=== PATIENT | female | born 1980 | race Caucasian/White ===

== ENCOUNTER 2019-09-19 09:01 | Outpatient (CLI) | payer BC, SELFPAY ==
--- NOTE | 2019-09-19 09:12 | XR_ITS ---
WS: [id number] XR foot LT min 3V* [id number] REASON FOR EXAM: left heel pain FINDINGS: A prominent calcaneal spur is noted. The phalanges, metatarsals, tarsals are normal. The remaining calcaneus appears to be normal. XR/XR foot LT min 3V* [id number] IMPRESSION: Prominent calcaneal spur with retrocalcaneal exostosis.
== END 2019-09-19 09:02 | disposition home or self-care (01) ==
LOC: RAD 09:04
PROVIDERS: Family Provider Family Medicine; PCP Family Medicine; Visit Provider Family Medicine
DX: M79.672 Pain in left foot (principal); M77.32 Calcaneal spur, left foot
CPT/HCPCS: 73630

== ENCOUNTER 2019-12-08 11:22 | Outpatient (CLI) | payer BC, SELFPAY ==
--- NOTE | 2019-12-08 11:30 | US_ITS ---
WS: [id number] TRANSABDOMINAL PELVIC AND TRANSVAGINAL PELVIC ULTRASOUND HISTORY: heavy irregular periods COMPARISON: 12/18/2017 Uterus: 8.5 cm x 5.2 cm x 4.6 cm. Retroverted uterus. No fibroid or mass. Normal homogeneity. Endometrium: 0.5 cm. Normal homogeneity and normal vascularity. Right ovary: 3.1 cm x 3.2 cm x 2.1 cm. Normal size ovary with small follicles. Normal vascularity. Left ovary: 3.6 cm x 2.7 cm x 1.6 cm. Normal size and vascularity. Collapsing corpus luteum in the ce ntral ovary with a maximum diameter of 1.0 cm. Small amount of free fluid in the cul-de-sac. US/US pelvic with transvaginal IMPRESSION: 1. Small amount of free fluid in the cul-de-sac. 2. Retroverted uterus. 3. Normal endometrium.
== END 2019-12-08 11:23 | disposition home or self-care (01) ==
LOC: RAD 11:23
PROVIDERS: Family Provider Family Medicine; Visit Provider Family Medicine
DX: N92.1 Excessive and frequent menstruation with irregular cycle (principal); R10.2 Pelvic and perineal pain; N85.4 Malposition of uterus
CPT/HCPCS: 76830; 76856

== ENCOUNTER 2020-09-03 14:45 | Outpatient (CLI) | payer BC, SELFPAY ==
--- NOTE | 2020-09-03 14:51 | MM_ITS ---
WS: [id number] BILATERAL SCREENING DIGITAL MAMMOGRAM WITH CAD HISTORY: SCREENING COMPARISON: 12/26/2018 and 12/18/2017 Bilateral CC and MLO views submitted. Computer aided detection analyzed. Breast composition: The breasts are heterogeneously dense, which may obscure small masses. No suspici ous masses, microcalcifications or architectural distortion. Scattered asymmetries and calcifications . Overall the pattern is stable. MM/[place] [id number] IMPRESSION: BI-RADS: 2-Benign FOLLOW UP: 1 Year Follow-up
== END 2020-09-03 14:46 | disposition home or self-care (01) ==
LOC: RADSHAW 14:50
PROVIDERS: PCP Family Medicine; Visit Provider Family Medicine
DX: Z12.31 Encounter for screening mammogram for malignant neoplasm of breast (principal)
CPT/HCPCS: 77067

== ENCOUNTER → 2020-11-15 09:52 | Outpatient (BNVA) | payer BC, SELFPAY | PROVIDERS: PCP Family Medicine; Visit Provider Obstetrics & Gynecology | DX: Z12.4 Encounter for screening for malignant neoplasm of cervix (principal) | CPT/HCPCS: 88175 ==

== ENCOUNTER → 2021-12-02 14:03 | Outpatient (BNVA) | payer BC, SELFPAY | PROVIDERS: PCP Family Medicine; Visit Provider Obstetrics & Gynecology | DX: N85.4 Malposition of uterus (principal) | CPT/HCPCS: 76830 ==

== ENCOUNTER 2021-12-14 07:34 | Outpatient (CLI) | payer BC, SELFPAY ==
--- NOTE | 2021-12-14 07:53 | NM_ITS ---
WS: [id number] NUCLEAR MEDICINE HIDA SCAN WITH GALLBLADDER EJECTION FRACTION HISTORY: RUQ PAIN COMPARISON: None available. TECHNIQUE: The patient was intravenously injected with 7.4 mCi of TC99m Mebrofenin. Immediate imaging over the right upper quadrant was followed by 5 minute image and additional images for a total of 60 minutes. Normal uptake of radiotracer throughout the liver. Activity identified in the gallbladder at 10 minutes and well distended by 60 minutes. Activity in the proximal small bowel was seen by 30 minutes. Good washout of the radiotracer from the liver by 60 minutes. The patient then drank 8 ounces of Ensure Plus. Ejection fraction at 60 minutes was 82%. Normal GB ej ection fraction is 35-75%. Post fatty meal symptoms: None. NM/NM hepatobiliary w phar* [id number] IMPRESSION: 1. Normal HIDA scan. 2. Normal gallbladder ejection fraction.
== END 2021-12-14 07:35 | disposition home or self-care (01) ==
PROVIDERS: PCP Family Medicine; Visit Provider Physician Assistant
DX: R10.11 Right upper quadrant pain (principal)
CPT/HCPCS: 78227; A9537

== ENCOUNTER 2021-12-21 14:35 | Emergency (ER) | payer BC, SELFPAY ==
[2021-12-21 14:48] VITALS: BP 130/91; PULSE 108; RESP 18; TEMP 36.8; O2SAT 97
--- NOTE | 2021-12-21 16:32 | CTR_ITS ---
PROCEDURE INFORMATION: Exam: CT Abdomen And Pelvis With Contrast Exam date and time: 12/21/2021 4:54 PM Age: 41 years old Clinical indication: Abdominal pain; Additional info: Llq abd pain, lmp currently on TECHNIQUE: Imaging protocol: Computed tomography of the abdomen and pelvis with contrast. Axial, coronal and sagittal reformatted images were created and reviewed. Radiation optimization: All CT scans at this facility use at least one of these dose optimization techniques: automated exposure control; mA and/or kV adjustment per patient size (includes targeted exams where dose is matched to clinical indication); or iterative reconstruction. Contrast material: OMNI 300; Contrast volume: 50 ml; Contrast route: INTRAVENOUS (IV); COMPARISON: US pelvic with transvaginal 12/08/2019 11:38 AM RADIATION DOSE METRICS: Total DLP (mGy-cm): 1544.95 FINDINGS: Lungs: Mild dependent atelectatic change in the right lower lobe. Diaphragm: Elevated right hemidiaphragm. Liver: Unremarkable. Gallbladder and bile ducts: No radiodense gallstones. No biliary ductal dilatation. Pancreas: Unremarkable. Spleen: Unremarkable. Adrenal glands: Normal. No mass. Kidneys and ureters: No mass. No radiodense calculi. No hydronephrosis. Stomach and bowel: Moderate amount of retained stool in the colon. No obstruction. No bowel wall thickening. No pneumatosis. Appendix: Normal. Intraperitoneal space: No free fluid. No organized fluid collection. No free air. Vasculature: Unremarkable. No aneurysm. Lymph nodes: Small mesenteric lymph nodes, nonspecific in appearance. No pathologically enlarged lymph nodes. Urinary bladder: Unremarkable as visualized. Reproductive: Unremarkable. Bones/joints: No acute osseous abnormality. Mild degenerative changes. Soft tissues: Unremarkable. CT/CT abdomen pelvis w con* [id number]: 1[address] No CT evidence of acute intra-abdominal or pelvic pathology. 2. Additional findings, as above.
[2021-12-21 16:49] LABS: Basophils # 0.1 10^3/uL (0.0-0.1); Basophils % 0.9 %; Eosinophils % 0.5 %; Hematocrit 41.6 % (37.0-47.0); Hemoglobin 13.7 g/dL (11.5-15.3); Lymphocytes # 1.6 10^3/uL (0.8-4.8); Lymphocytes % 27.6 %; Mean Corpuscular HGB Conc 32.9 g/dL (30.0-36.0); Mean Corpuscular Hemoglobin 30.2 pg (28.0-34.0); Mean Corpuscular Volume 91.8 fl (81-99); Mean Platelet Volume 10.4 fL (7.4-10.4); Monocytes # 0.4 10^3/uL (0.2-0.9); Monocytes % 7.2 %; Neutrophils % 63.4 %; Nucleated Red Blood Cells % 0 %; Platelet Count 276 10^3/cmm (130-400); Red Blood Count 4.53 10^6/uL (4.1-5.3); Red Cell Distribution Width 12.5 % (12.1-15.1); White Blood Count 5.7 10^3/uL (4.0-10.0)
[2021-12-21] MEDS: iohexol 300 mg/mL 100 mL Btl IV (17:01)
--- NOTE | 2021-12-21 17:05 | ED_ITS ---
HPI - Abdominal Pain General: Chief Complaint: Abdominal Pain Stated Complaint: Abd pain Time Seen by Provider: 12/21/21 16:27 History of Present Illness: Patient comes in with abdominal pain which she describes as off and on, left lower quadrant, sharp, worse the last couple of days, started a couple months ago. States she is had ultrasound and is scheduled for a CT. States over the last 24 hours is gotten worse. She denies fever, vomiting, diarrhea. Associated Symptoms: Denies dysuria, fever(s), nausea and vomiting Review of Systems Const: Denies: fever(s) or body aches Eyes: Denies: change in vision or blurry vision ENMT: Denies: throat pain or odynophagia Card: Denies: chest pain or palpitations Resp: Denies: dyspnea or productive cough GI: Reports: abdominal pain; Denies: nausea or vomiting : Denies: flank pain or dysuria Musc: Denies: neck pain or back pain Skin/Breast: Denies: rash or pruritus Neuro: Denies: headache(s) or numbness in extremities Psych: Denies: anxiety or change in appetite Endo: Denies: polyuria or excessive sweating PFSH ED PFSH: Medical History GERD (gastroesophageal reflux disease) Graves disease History of 2019 novel coronavirus disease (COVID-19) Surgical History No pertinent past surgical history Family History Family/Other Thyroid disease Maternal Aunt--Hypothyroidism Family/Other Cancer Paternal Uncle--liver and eye Grandfather Cancer Paternal--prostate cancer Other CAD (coronary artery disease) Denies family history of Diabetes Ovarian cyst Clotting disorder Dementia Hyperlipidemia Psychiatric illness Chronic kidney disease (CKD) Breast cancer Suicide Anesthesia complication Bleeding disorder Family history of premature coronary artery disease Lung disease Hypertension Stroke Physical Exam Const: COMMON NORMALS: no acute distress, patient oriented x3, healthy appearing and alert HENMT: COMMON NORMALS: normocephalic and atraumatic HEAD & SCALP: normocephalic and atraumatic Eye: COMMON NORMALS: Equal, round and reactive pupils present and EOMs intact bilaterally PUPIL: Yes Equal, round and reactive pupils present Neck/C-Spine: COMMON NORMALS: full ROM and supple Resp: COMMON NORMALS: normal respiratory effort, No retractions and No use of accessory muscles Cardio: COMMON NORMALS: regular rate and regular rhythm RATE: regular rate RHYTHM: regular rhythm GI: COMMON NORMALS: Normal to inspection, nondistended, normoactive bowel sounds present and Soft to palpation PALPATION: Yes Soft to palpation O THER: Mild left lower quadrant tenderness to palpation Back/Pelvis: COMMON NORMALS: thoracic and lumbar spine normal to inspection and no thoracic nor lumbar tenderness Extremity: COMMON NORMALS: normal to inspection and full ROM Neuro: COMMON NORMALS: patient oriented x3 SENSORIUM/ORIENTATION: Yes alert Psych: COMMON NORMALS: mental status grossly normal and cooperative Skin: COMMON NORMALS: no rashes or lesions noted and no wounds GENERAL SKIN EXAM: no rashes or lesions noted Course Vital Signs: Vital signs: Vital Signs Temperature 98.2 F 12/21/21 14:48 Pulse Rate 108 H 12/21/21 14:48 Respiratory Rate 18 12/21/21 14:48 Blood Pressure 130/91 12/21/21 14:48 Pulse Oximetry 97 12/21/21 14:48 MDM - Abdominal Pain Medical Decision Making Patient comes in with abdominal pain which she describes as off and on, left lower quadrant, sharp, worse the last couple of days, started a couple months ago. States she is had ultrasound and is scheduled for a CT. States over the last 24 hours is gotten worse. She denies fever, vomiting, diarrhea. Physical exam is unremarkable except for mild left lower quadrant tenderness palpation. Will check labs, CT, and reassess. On reassessment I talked to the patient about the test results. Will discharge home at this time with precautions to return for worsening or changing symptoms. Lab Data : 12/21/21 16:40 12/21/21 16:40 Labs/Radiology: Radiology Impressions Abdomen/Pelvis CT 12/21/21 16:[address]: 1[address] evidence of acute intra-abdominal or pelvic pathology. 2. Additional findings, as above. Laboratory Results WBC 5.7 10^3/uL (4.0-10.0) 12/21/21 16:40 RBC 4.53 10^6/uL (4.1-5.3) 12/21/21 16:40 Hgb 13.7 g/dL (11.5-15.3) 12/21/21 16:40 Hct 41.6 % (37.0-47.0) 12/21/21 16:40 MCV 91.8 fl (81-99) 12/21/21 16:40 MCH 30.2 pg (28.0-34.0) 12/21/21 16:40 MCHC 32.9 g/dL (30.0-36.0) 12/21/21 16:40 RDW 12.5 % (12.1-15.1) 12/21/21 16:40 Plt Count 276 10^3/cmm (130-400) 12/21/21 16:40 MPV 10.4 fL (7.4-10.4) 12/21/21 16:40 Neut % (Auto) 63.4 % 12/21/21 16:40 Lymph % (Auto) 27.6 % 12/21/21 16:40 Mccone % (Auto) 7.2 % 12/21/21 16:40 Eos % (Auto) 0.5 % 12/21/21 16:40 Baso % (Auto) 0.9 % 12/21/21 16:40 Neut # (Auto) 3.60 10^3/uL (1.8-7.7) 12/21/21 16:40 Lymph # (Auto) 1.6 10^3/uL (0.8-4.8) 12/21/21 16:40 Mccone # (Auto) 0.4 10^3/uL (0.2-0.9) 12/21/21 16:40 Eos # (Auto) 0.0 10^3/uL (0.0-0.8) 12/21/21 16:40 Baso # (Auto) 0.1 10^3/uL (0.0-0.1) 12/21/21 16:40 Nucleated RBC % (auto) 0 % 12/21/21 16:40 Nucleated RBCs # 0.0 /100WBC 12/21/21 16:40 Sodium 140 mmol/L (136-145) 12/21/21 16:40 Potassium 3.8 mmol/L (3.5-5.1) 12/21/21 16:40 Chloride 103 mmol/L (98-107) 12/21/21 16:40 Carbon Dioxide 25 mmol/L (22-29) 12/21/21 16:40 Anion Gap 15.8 (5-19) 12/21/21 16:40 BUN 14 mg/dL (6-20) 12/21/21 16:40 Creatinine 0.7 mg/dL (0.5-0.9) 12/21/21 16:40 GFR Calculation 91.3 mL/min (90-130) 12/21/21 16:40 Glucose 105 mg/dL (65-115) 12/21/21 16:40 Calculated Osmolality 291 mOsm/kg (285-295) 12/21/21 16:40 Calcium 9.7 mg/dL (8.5-10.5) 12/21/21 16:40 Total Bilirubin 0.3 mg/dL (0.15-1.2) 12/21/21 16:40 AST 13 U/L (0-32) 12/21/21 16:40 ALT 11 U/L (0-33) 12/21/21 16:40 Alkaline Phosphatase 64 IU/L (35-105) 12/21/21 16:40 Total Protein 7.1 g/dL (6.6-8.7) 12/21/21 16:40 Albumin 4.8 g/dL (3.5-5.2) 12/21/21 16:40 Globulin 2.3 g/dL (1.3-4.6) 12/21/21 16:40 Lipase 21 U/L (13-60) 12/21/21 16:40 Discharge Plan Discharge Patient Disposition: Home Clinical Impression: LLQ pain Condition: Stable Prescriptions: No Action methimazole 10 mg tablet 5 mg PO DAILY 0RF Discharge Orders: Discharge ED (Routine); Ordered 12/21/21 Ordered By: Juan Edwards Referrals: Domonique Price DO [Primary Care Provider] - Patient Instructions: Abdominal Pain (ED) Coding Level of Care Code ED President Practicing Urologist for Chg Fwd Exam Comprehensive
[2021-12-21 17:52] LABS: Alanine Aminotransferase 11 U/L (0-33); Albumin Level 4.8 g/dL (3.5-5.2); Alkaline Phosphatase 64 IU/L (35-105); Anion Gap 15.8 (5-19); Aspartate Amino Transferase 13 U/L (0-32); Blood Urea Nitrogen 14 mg/dL (6-20); Calcium 9.7 mg/dL (8.5-10.5); Carbon Dioxide 25 mmol/L (22-29); Chloride 103 mmol/L (98-107); Globulin 2.3 g/dL (1.3-4.6); Glomerular Filtration Rate 91.3 mL/min (90-130); Glucose 105 mg/dL (65-115); Lipase 21 U/L (13-60); Osmolality Calculated 291 mOsm/kg (285-295); Potassium 3.8 mmol/L (3.5-5.1); Sodium 140 mmol/L (136-145); Total Bilirubin 0.3 mg/dL (0.15-1.2); Total Protein 7.1 g/dL (6.6-8.7)
== END 2021-12-21 18:07 | disposition home or self-care (01) ==
PROVIDERS: Emergency Medicine; Emergency Provider Emergency Medicine; PCP Family Medicine
DX: R10.32 Left lower quadrant pain (principal); K21.9 Gastro-esophageal reflux disease without esophagitis
CPT/HCPCS: 74177; 80053; 83690; 85025; 99283; Q9967

== ENCOUNTER 2024-04-18 08:48 | Outpatient (CLI) | payer BC, SELFPAY ==
--- NOTE | 2024-04-18 08:52 | MM_ITS ---
WS: [id number] BILATERAL SCREENING DIGITAL TOMOSYNTHESIS MAMMOGRAM WITH CAD HISTORY: SCREENING COMPARISON: 09/03/2020, 12/26/2018, 12/18/2017 Bilateral CC and MLO views with tomosynthesis and synthetic mammography submitted. Computer aided det ection analyzed. Breast composition: The breasts are heterogeneously dense, which may obscure small masses. No suspici ous masses, microcalcifications or architectural distortion. Multiple asymmetries within each breast. Asymmetry is remained stable since at least 2017. MM/MM scr tomosynthesis [id number] IMPRESSION: BI-RADS: 2 - Benign FOLLOW UP: 1 Year Follow-up
== END 2024-04-18 08:49 | disposition home or self-care (01) ==
LOC: RAD 08:48
PROVIDERS: PCP Family Medicine; Visit Provider Physician Assistant
DX: Z12.31 Encounter for screening mammogram for malignant neoplasm of breast (principal); R92.333 Mammographic heterogeneous density, bilateral breasts; N64.89 Other specified disorders of breast
CPT/HCPCS: 77063; 77067